=== PATIENT | male | born 1960 | race Caucasian/White ===

== ENCOUNTER 2019-03-15 10:23 | Emergency (ER) | payer OTHER ==
[~2019-03-15] VITALS: Ht 177.8 cm; Wt 79.4 kg
[2019-03-15] MEDS ORDERED: SODIUM CHLORIDE 0.9% 1,000 ML IVB ONE (10:39)
[2019-03-15] MEDS ORDERED: PROCHLORPERAZINE EDISYLATE 5 MG/ML 2ML VIAL IV ONE (10:45)
[2019-03-15] MEDS ORDERED: DIPHENOXYLATE W/ATROPINE 2.5 MG TAB PO ONE (10:45)
[2019-03-15 11:07] LABS: Eosinophils # (auto) 0.1 uL; Eosinophils % (auto) 1.1 % (0.0-7.0); Lymphocytes # (auto) 0.2 uL; Monocytes # (auto) 0.4 uL; Platelet Count (auto) 203 10^3/uL (140-450)
[2019-03-15 11:09] LABS: Basophils # (auto) 0 uL; Basophils % (auto) 0.4 % (0.0-2.0); Hematocrit 52.4 % (41.0-53.0); Hemoglobin 17.9 g/dL (13.5-17.5); Lymphocytes % (auto) 1.7 % (10.0-50.0); Mean Corpuscular Hemoglobin 29.4 pg (28.0-32.0); Mean Corpuscular Hgb Conc. 34.3 g/dL (32.0-36.0); Mean Corpuscular Volume 85.9 fL (80.0-100.0); Monocytes % (auto) 3.8 % (0.0-12.0); Neutrophils # (auto) 10.2 uL; Nucleated Red Blood Cells % 0.1 %; Red Cell Distribution Width 13.7 % (11.8-14.3)
[2019-03-15 11:34] LABS: Albumin 4.2 g/dL (3.4-5.0); BUN/Creatinine Ratio 10.3; Bilirubin, Total 0.6 mg/dL (0.2-1.0); Calcium 9.4 mg/dL (8.5-10.1); Total Protein 8.1 g/dL (6.4-8.2)
[2019-03-15 13:32] VITALS: BP 122/72
== END 2019-03-15 14:33 | disposition home or self-care (01) ==
LOC: EDBD 10:23 → ER 10:34
DX: K52.9 Noninfective gastroenteritis and colitis, unspecified (principal)
CPT/HCPCS: 36415; 74176; 80053; 83690; 85025; 93005; 94761; 96361; 96374; 99284; J0780